=== PATIENT | female | born 1985 | race Caucasian/White ===

== ENCOUNTER → 2020-09-12 | Outpatient (REF) ==
--- NOTE | 2020-09-18 14:20 | SLEEPHOME ---
DIAGNOSTIC HOME SLEEP STUDY JESUS DATE: 09/12/2020 ORDERED BY: LONG Thomas Diagnostic home sleep testing was performed due to concern for the obstructive sleep apnea syndrome in this patient with a history of daytime somnolence. For testing, a nocturnal T3 respiratory monitoring device was used. Continuous record was made of pulse, oxygen saturation, air flow, chest and abdominal strain, and body position. 7 hours and 59 minutes of data were reviewed. There were 7 hours and 27 minutes marked as time in bed. During the interval marked time in bed, there were 87 respiratory events identified of 10 seconds in duration or greater for a respiratory event index of 11.7. The events were primarily obstructive. Baseline pulse rate of 93. Pulse rate range 73 to 122. Baseline saturation was 92%. Saturations fell to 84%. Testing was performed in both the supine and non-supine positions. IMPRESSION: IMPRESSION: Abnormal home sleep testing, with repetitive respiratory events and oxygen desaturations to 84% and a respiratory event index of 11.7, is consistent with the obstructive sleep apnea syndrome. RECOMMENDATION: The patient should be encouraged to undergo formal sleep evaluation.
== END ==
LOC: M SLEEP HO 10:00
PROVIDERS: ATTEND Nurse Practitioner Family
DX: G47.33 Obstructive sleep apnea (adult) (pediatric) (principal)

== ENCOUNTER 2021-03-20 14:42 | Emergency (ER) ==
[~2021-03-20] VITALS: Ht 160 cm; Wt 96.6 kg
[2021-03-20 14:42] VITALS: BP 134/86
[2021-03-20] MEDS ORDERED: PREN200C PO (14:55)
[2021-03-20] MEDS ORDERED: GABA-283 PO (14:55)
== END 2021-03-20 15:20 | disposition left against medical advice (07) ==
LOC: M ED 14:42
DX: Z53.29 Procedure and treatment not carried out because of patient's decision for other reasons (principal)

== ENCOUNTER 2022-12-21 21:13 | Observation (INO) | payer OTHER, SELFPAY ==
[~2022-12-21] VITALS: Ht 160 cm; Wt 96.3 kg
[~2022-12-21 21:13] MED LIST: GABA-284 PO; PREN200C PO
[2022-12-21 22:11] LABS: BASO % 0.4 % (0.0-1.0); EOS % 1.1 % (0.0-3.0); HEMATOCRIT 39.6 % (36.0-47.0); HEMOGLOBIN 12.9 g/dl (12.0-15.5); LYMPH # 0.8 10^3/uL (1.5-5.0); MEAN CORPUSCULAR HEMOGLOBIN 28.6 pg (27.0-33.0); MEAN CORPUSCULAR HGB CONC 32.6 g/dl (32.0-36.5); MEAN CORPUSCULAR VOLUME 87.8 fl (80.0-96.0); MONO # 0.4 10^3/uL (0.0-0.8); MONO % 12.8 % (2.0-8.0); NEUTROPHILS # 1.6 10^3/uL (1.5-8.5); PLATELET COUNT, AUTOMATED 132 10^3/uL (150-450); RED BLOOD COUNT 4.51 10^6/uL (4.00-5.40); WHITE BLOOD COUNT 2.8 10^3/uL (4.0-10.0)
[2022-12-21 22:47] LABS: ETHYL ALCOHOL (ETHANOL) < 0.003 % (0.000-0.010); LIPASE 36 U/L (12-53)
[2022-12-21 22:49] LABS: ACETAMINOPHEN LEVEL < 2.0 UG/ML (10.0-20.0); ALBUMIN 3.5 G/DL (3.2-5.2); ALKALINE PHOSPHATASE 97 U/L (46-116); ALT/SGPT 46 U/L (7.0-40); AST/SGOT 27 U/L (<34); BILIRUBIN,DIRECT 0.1 MG/DL (<0.4); BILIRUBIN,TOTAL 0.3 MG/DL (0.3-1.2); BLOOD UREA NITROGEN 11 MG/DL (9-23); CALCIUM LEVEL 8.2 MG/DL (8.5-10.1); CARBON DIOXIDE LEVEL 25 MMOL/L (20-31); CHLORIDE LEVEL 107 MMOL/L (98-107); CREATININE FOR GFR 0.64 MG/DL (0.55-1.30); GLOMERULAR FILTRATION RATE > 60.0 (>60); GLUCOSE, FASTING 109 MG/DL (60-100); POTASSIUM SERUM 3.6 MMOL/L (3.5-5.1); SALICYLATE LEVEL < 3.0 MG/DL (<30); SODIUM LEVEL 140 MMOL/L (136-145); TOTAL PROTEIN 5.5 G/DL (5.7-8.2)
[2022-12-21 22:59] LABS: AMPHETAMINES LEVEL URINE NEGATIVE (NEGATIVE); BARBITURATES URINE NEGATIVE (NEGATIVE); BENZODIAZEPINES URINE NEGATIVE (NEGATIVE); CANNABINOIDS URINE NEGATIVE (NEGATIVE); COCAINE METABOLITE URINE NEGATIVE (NEGATIVE); METHADONE URINE NEGATIVE (NEGATIVE); OPIATES URINE NEGATIVE (NEGATIVE); PHENCYCLIDINE URINE NEGATIVE (NEGATIVE)
[2022-12-22] MEDS ORDERED: GABA-282 PO (00:19)
[2022-12-22] MEDS ORDERED: HOME MED LIST COMPLETE! XX SCH (00:20)
[2022-12-22] MEDS ORDERED: ACETAMINOPHEN TAB 650MG DOSE (2X325MG) PO ONE (01:25)
[2022-12-22] MEDS ORDERED: ACETAMINOPHEN TAB 650MG DOSE (2X325MG) PO PRN (01:45)
[2022-12-22] MEDS ORDERED: ALBUTEROL 90 MCG/ACT 8GM HFA INHALER INH PRN (01:45)
[2022-12-22 03:25] VITALS: BP 108/60; TEMP 97.9; O2SAT 95
[2022-12-22 07:21] LABS: HEMATOCRIT 38.4 % (36.0-47.0); HEMOGLOBIN 12.8 g/dl (12.0-15.5); MEAN CORPUSCULAR HGB CONC 33.3 g/dl (32.0-36.5); MEAN CORPUSCULAR VOLUME 87.1 fl (80.0-96.0); PLATELET COUNT, AUTOMATED 133 10^3/uL (150-450); RED BLOOD COUNT 4.41 10^6/uL (4.00-5.40); WHITE BLOOD COUNT 2.8 10^3/uL (4.0-10.0)
[2022-12-22 07:55] VITALS: BP 108/57; TEMP 97.2; O2SAT 91
[2022-12-22 08:09] LABS: ALBUMIN 3.4 G/DL (3.2-5.2); ALKALINE PHOSPHATASE 91 U/L (46-116); ALT/SGPT 49 U/L (7.0-40); AST/SGOT 33 U/L (<34); BILIRUBIN,TOTAL 0.3 MG/DL (0.3-1.2); BLOOD UREA NITROGEN 10 MG/DL (9-23); CALCIUM LEVEL 8.3 MG/DL (8.5-10.1); CARBON DIOXIDE LEVEL 24 MMOL/L (20-31); CHLORIDE LEVEL 109 MMOL/L (98-107); CREATININE FOR GFR 0.63 MG/DL (0.55-1.30); GLOMERULAR FILTRATION RATE > 60.0 (>60); GLUCOSE, FASTING 105 MG/DL (60-100); POTASSIUM SERUM 3.7 MMOL/L (3.5-5.1); SODIUM LEVEL 143 MMOL/L (136-145); TOTAL PROTEIN 5.3 G/DL (5.7-8.2)
[2022-12-22] MEDS ORDERED: ENOXAPARIN 40MG/0.4ML SYRINGE (J1650 PER 10MG) SC SCH (09:00)
[2022-12-22] MEDS ORDERED: ASPIRIN 81MG ENTERIC TABLET PO SCH (09:00)
[2022-12-22] MEDS: GABAPENTIN 300 MG CAP PO SCH ×2 (09:05→12:25)
[2022-12-22 10:00] LABS: CHOLESTEROL LEVEL 120 MG/DL (<200); CHOLESTEROL RISK RATIO 4.89 (<5); HDL CHOLESTEROL 24.5 MG/DL (>40); LDL CHOLESTEROL 71.3 MG/DL (<100); NON-HDL-C 95.5 MG/DL; TRIGLYCERIDES LEVEL 121 MG/DL (<150)
[2022-12-22 12:45] LABS: INR 0.95; PROTHROMBIN TIME 12.3 SECONDS (12.5-14.5)
[2022-12-22] MEDS ORDERED: ATOR1TAB21 PO (14:06)
[2022-12-22] MEDS ORDERED: ASPI81TAEC PO (14:06)
[2022-12-22] MEDS ORDERED: VENTAER INH (14:06)
[2022-12-22] MEDS ORDERED: ATORVASTATIN 20 MG TAB PO SCH (21:00)
[2022-12-25 10:10] LABS: DRVV SCREEN 42.1 SECONDS
[2022-12-25 10:15] LABS: PTT LUPUS TYPE ANTICOAG SCREEN 1.07 (0-1.20)
[2022-12-29 14:08] LABS: ANCA-ATYPICAL <1:20 titer (Neg:<1:20); ANTI THROMBIN 3 ANTIGEN IMMUNO 80 % (72-124); ANTI THROMBIN 3 FUNCT ACTIVITY 116 % (75-135); ANTINUCLEAR ANTIBODIES DIRECT Negative (Negative); CARDIOLIPIN IGA ANTIBODY <9 APL U/mL (0-11); CARDIOLIPIN IGG ANTIBODY <9 GPL U/mL (0-14); CARDIOLIPIN IGM ANTIBODY <9 MPL U/mL (0-12); CYTOPLASMIC NEUTROP AB ANCA-C <1:20 titer (Neg:<1:20); HOMOCYST(E)INE SERUM 4.1 umol/L (0.0-14.5); PERINUCLEAR AB ANCA-P <1:20 titer (Neg:<1:20); PROTEIN C ANTIGEN 89 % (60-150); PROTEIN S ANTIGEN FREE 74 % (61-136); PROTEIN S ANTIGEN TOTAL 68 % (60-150); SJOGREN'S ANTI SS-A <0.2 AI (0.0-0.9); SJOGREN'S ANTI SS-B <0.2 AI (0.0-0.9)
== END 2022-12-22 14:28 | disposition home or self-care (01) ==
LOC: M ED 21:13 → INTOOBSV 12-22 01:44 → M ED INP 12-22 01:44 → M PCU 12-22 03:14
PROVIDERS: ADMIT Family Medicine; ATTEND Family Medicine
DX: R20.0 Anesthesia of skin (principal); U07.1 COVID-19; J45.909 Unspecified asthma, uncomplicated; M79.7 Fibromyalgia; F17.210 Nicotine dependence, cigarettes, uncomplicated; Z79.899 Other long term (current) drug therapy
CPT/HCPCS: 36415; 70450; 70544; 70547; 70551; 80048; 80053; 80061; 80076; 80143; 80307; 81240; 82077; 83036; 83090; 83690; 85025; 85027; 85300; 85301; 85302; 85305; 85306; 85610; 85652; 85730; 86037; 86038; 86140; 86147; 93306; 96372; 99285; J1650